=== PATIENT | female | born 1995 | race Native Hawaiian/Other Pacific Islander ===

== ENCOUNTER 2017-07-10 17:22 | Emergency (ER) | payer OTHER ==
[~2017-07-10] VITALS: Ht 157.5 cm; Wt 61.7 kg
[2017-07-10 17:48] VITALS: BP 121/72; TEMP 98.7
== END 2017-07-10 18:10 | disposition home or self-care (01) ==
LOC: ED 17:22
DX: M79.674 Pain in right toe(s) (principal); Z33.1 Pregnant state, incidental
CPT/HCPCS: 99281